=== PATIENT | male | born 1985 | race African-American/Black ===

== ENCOUNTER 2020-04-18 10:08 | Emergency (ER) | payer BC, OTHER ==
[~2020-04-18] VITALS: Ht 180.3 cm; Wt 65.8 kg
[~2020-04-18 10:08] MED LIST: NOHOMEMEDICATIONS
[2020-04-18 12:17] VITALS: BP 120/80
== END 2020-04-18 12:17 | disposition home or self-care (01) ==
LOC: ER 10:08
DX: S39.012A Strain of muscle, fascia and tendon of lower back, initial encounter (principal); X50.0XXA Overexertion from strenuous movement or load, initial encounter; Y93.89 Activity, other specified; Y92.89 Other specified places as the place of occurrence of the external cause; Y99.8 Other external cause status